=== PATIENT | female | born 1990 | race Hispanic/Latino ===

== ENCOUNTER 2017-10-19 16:48 | Emergency (ER) | payer SELFPAY ==
[2017-10-19 18:13] LABS: APPEARANCE,URINE Clear (CLEAR); BILIRUBIN,URINE Negative (NEGATIVE); COLOR,URINE Yellow (YELLOW); GLUCOSE, URINE (UA) Negative (NEGATIVE); KETONES,URINE Negative (NEGATIVE); LEUKOCYTE ESTERASE ,URINE Negative (NEGATIVE); NITRATE,URINE Negative (NEGATIVE); OCCULT BLOOD,URINE Moderate (NEGATIVE); PROTEIN,URINE Negative (NEGATIVE); UROBILINOGEN,URINE 0.2 mg/dL (0.2-1.0)
[2017-10-19 18:16] LABS: HCG,QUAL RESULT NEGATIVE (NEGATIVE)
[2017-10-19] MEDS ORDERED: KETOROLAC TROMETHAMINE 30MG/ML ONE (18:21)
[2017-10-19 18:46] LABS: BACTERIA,URINE Few /HPF (None Seen); RBC,URINE None Seen /HPF (0-1); WBC,URINE 0-1 /HPF (0-1)
== END 2017-10-19 18:26 | disposition home or self-care (01) ==
LOC: EDH 16:48
DX: N92.0 Excessive and frequent menstruation with regular cycle (principal); Z88.5 Allergy status to narcotic agent
CPT/HCPCS: 81001; 81025; 96372; 99284; J1885

== ENCOUNTER 2020-10-22 18:07 | Emergency (ER) | payer SELFPAY ==
[~2020-10-22 18:07] MED LIST: PROMETHAZINE HCL 25 MG/ML 1ML AMPULE IM ONE
[2020-10-22 18:38] LABS: BASOPHILS % (AUTO) 0.8 % (0.0-5.0); EOSINOPHILS % (AUTO) 3.1 % (0.0-8.0); HEMATOCRIT 40.5 % (36-48); LYMPHOCYTES % (AUTO) 38.7 % (21.0-51.0); MEAN CORPUSCULAR HEMOGLOBIN 28.2 pg (27.0-33.0); MEAN CORPUSCULAR HGB CONC 32.8 g/dL (32.0-36.0); MONOCYTES % (AUTO) 6.2 % (3.0-13.0); PLATELET COUNT (AUTO) 427 K/uL (130-400); RED BLOOD CELL COUNT(AUTO) 4.71 MIL/uL (4.00-5.50); RED CELL DISTRIBUTION WIDTH 13.1 % (11.0-15.5); WHITE BLOOD COUNT (AUTO) 8.9 K/uL (4.8-10.8)
[2020-10-22 18:48] LABS: CREATININE 0.6 mg/dL (0.5-1.5); POTASSIUM 4.2 mmol/L (3.5-5.1)
[2020-10-22] MEDS ORDERED: KETOROLAC TROMETHAMINE 30MG/ML ONE (18:48)
[2020-10-22] MEDS ORDERED: CYCLOBENZAPRINE HCL 10 MG TABLET ONE (18:49)
[2020-10-22] MEDS ORDERED: SODIUM CHLORIDE 0.9% 1000ML 1,000 ML IV ONE (18:49)
[2020-10-22 18:59] LABS: ALBUMIN 3.6 g/dL (3.5-5.0); BILIRUBIN,TOTAL 0.1 mg/dL (0.2-1.0); TOTAL PROTEIN, SERUM 8.3 g/dL (6.0-8.3)
== END 2020-10-22 20:03 | disposition home or self-care (01) ==
LOC: EDH 18:07
DX: G43.009 Migraine without aura, not intractable, without status migrainosus (principal); Z88.6 Allergy status to analgesic agent
CPT/HCPCS: 36415; 80053; 84702; 85025; 96365; 96375; 99284; J1885; J2550; J7030

== ENCOUNTER 2022-03-05 15:34 | Emergency (ER) | payer OTHER ==
[~2022-03-05] VITALS: Ht 152.4 cm; Wt 143.3 kg
[2022-03-05 15:36] VITALS: BP 128/83
[2022-03-05] MEDS ORDERED: HYDROCODONE/ACETAMINOPHEN 10/325 MG TAB PO ONE (16:00)
[2022-03-05 16:01] LABS: APPEARANCE,URINE CLOUDY (CLEAR); BILIRUBIN,URINE SMALL (NEGATIVE); COLOR,URINE ORANGE (YELLOW); GLUCOSE, URINE (UA) NEGATIVE (NEGATIVE); KETONES,URINE 5 mg/dL (NEGATIVE); LEUKOCYTE ESTERASE ,URINE TRACE (NEGATIVE); NITRATE,URINE POSITIVE (NEGATIVE); OCCULT BLOOD,URINE LARGE (NEGATIVE); PH,URINE 5.5 (5.0-8.0); PROTEIN,URINE 100 mg/dL (NEGATIVE)
[2022-03-05 16:01] LABS: BASOPHILS % (AUTO) 0.5 % (0.0-5.0); EOSINOPHILS % (AUTO) 2.4 % (0.0-8.0); HEMATOCRIT 39.1 % (36-48); LYMPHOCYTES % (AUTO) 34.9 % (21.0-51.0); MEAN CORPUSCULAR HEMOGLOBIN 28.4 pg (27.0-33.0); MEAN CORPUSCULAR HGB CONC 33.8 g/dL (32.0-36.0); MEAN CORPUSCULAR VOLUME 84.1 fL (79-99); MONOCYTES % (AUTO) 4.3 % (3.0-13.0); NEUTROPHILS % (AUTO) 57.5 % (40.0-77.0); PLATELET COUNT (AUTO) 427 K/uL (130-400); RED BLOOD CELL COUNT(AUTO) 4.65 MIL/uL (4.00-5.50); RED CELL DISTRIBUTION WIDTH 13.2 % (11.0-15.5); WHITE BLOOD COUNT (AUTO) 10.3 K/uL (4.8-10.8)
[2022-03-05 16:06] LABS: HCG,QUAL RESULT NEGATIVE (NEGATIVE)
[2022-03-05 16:10] LABS: BACTERIA,URINE Rare /HPF (None Seen); RBC,URINE TNTC /HPF (0-1)
[2022-03-05 16:11] LABS: SQUAMOUS EPITHELIAL CELL,UR Rare /HPF (0-2)
[2022-03-05 16:15] LABS: INR 0.95 (0.85-1.15); PROTHROMBIN TIME 10.4 SEC (9.6-11.6)
[2022-03-05 16:16] LABS: PARTIAL THROMBOPLASTIN TIME 27.7 SEC (26.3-35.5)
[2022-03-05 16:18] LABS: ALBUMIN 3.4 g/dL (3.5-5.0); CREATININE 0.8 mg/dL (0.5-1.5); POTASSIUM 3.8 mmol/L (3.5-5.1); TOTAL PROTEIN, SERUM 8.4 g/dL (6.0-8.3)
[2022-03-05] MEDS ORDERED: CEFTRIAXONE 1G VIAL IM ONE (16:30)
[2022-03-05] MEDS ORDERED: PHENAZOPYRIDINE HCL 200 MG TABLET PO ONE (16:30)
[2022-03-05] MEDS ORDERED: CEPH500B PO (16:34)
[2022-03-05] MEDS ORDERED: PHEN-847 PO (16:34)
== END 2022-03-05 16:46 | disposition home or self-care (01) ==
LOC: EDH 15:34
DX: N93.8 Other specified abnormal uterine and vaginal bleeding (principal); N39.0 Urinary tract infection, site not specified; E66.9 Obesity, unspecified; Z68.44 Body mass index [BMI] 60.0-69.9, adult
CPT/HCPCS: 99283; 80053; 85025; 85610; 85730; 87088; 81001; 81025; 36415; 96372; J0696